=== PATIENT | male | born 1990 | race Two or more races ===

== ENCOUNTER 2017-04-26 00:40 | Emergency (ER) | payer OTHER ==
[~2017-04-26] VITALS: Ht 185.4 cm; Wt 89.8 kg
[2017-04-26] MEDS ORDERED: NKM (00:49)
[2017-04-26 00:55] VITALS: BP 134/85
--- NOTE | 2017-04-26 01:00 | Emergency Room Report ---
History of Present Illness General Chief Complaint: Foreign Body Source: Patient Present Illness HPI This is a 27-year-old male with no past medical history. He presents with a swallowed foreign body. He was drinking a Pepsi can and accidentally swallowed the tab. No other complaint. Denies any other than this. No pain. No fever or chills no nausea no vomiting. Allergies: Coded Allergies: No Known Allergies (Unverified , 04/26/17) Patient History Past Medical History: none, see triage record, old chart reviewed Past Surgical History: none Pertinent Family History: none Social History: Denies: smoking Immunizations: other Reviewed Nursing Documentation: PMH: Agreed, PSxH: Agreed Nursing Documentation-PMH Past Medical History: No Stated History Review of Systems Eye: Denies: eye pain, blurred vision ENT: Denies: ear pain, nose congestion, throat swelling Respiratory: Denies: cough, shortness of breath Cardiovascular: Denies: chest pain, palpitations Gastrointestinal: Denies: abdominal pain, diarrhea, nausea, vomiting Musculoskeletal: Denies: back pain, joint pain Skin: Denies: rash Neurological: Denies: headache, numbness Endocrine: Denies: increased thirst, increased urine Hematologic/Lymphatic: Denies: easy bruising All Other Systems: negative except mentioned in HPI Physical Exam Vital Signs Date Time Temp Pulse Resp B/P (MAP) Pulse Ox O2 Delivery O2 Flow Rate FiO2 04/26/17 00:45 97.9 72 16 134/85 99 Room Air vitals normal Sp02 EP Interpretation: reviewed, normal General Appearance: well appearing, no apparent distress, alert Head: normocephalic, atraumatic Eyes: bilateral eye PERRL, bilateral eye EOMI ENT: hearing grossly normal, normal pharynx Neck: full range of motion, supple, no meningismus Respiratory: chest non-tender, lungs clear, normal breath sounds Cardiovascular #1: regular rate, rhythm, no murmur Gastrointestinal: normal bowel sounds, non tender, no mass, no organomegaly, no bruit, non-distended Musculoskeletal: back normal, gait/station normal, normal range of motion Psychiatric: mood/affect normal Skin: warm/dry Medical Decision Making Diagnostic Impression: Primary Impression: Swallowed foreign body Qualified Codes: T18.9XXA - Foreign body of alimentary tract, part unspecified , initial encounter ER Course Patient with of swallowed foreign body. Not in his lung. No respiratory distress. No abdominal pain. I see no foreign body in the chest x-ray will be abdominal x-ray. He said he swallow an aluminum tab. His that can be seen on the x-ray. Reassured patient. We'll discharge him. Chest X-Ray Diagnostic Results Chest X-Ray Diagnostic Results : Chest X-Ray Ordered: Yes # of Views/Limited/Complete: 1 View Indication: Other - Swallowed foreign body EP Interpretation: Yes Interpretation: no consolidation, no effusion, no pneumothorax, other - No foreign body Impression: No acute disease Electronically Signed by: Electronically signed by Justin Martinez MD Other X-Ray Diagnostic Results Other X-Ray Diagnostic Results : X-Ray ordered: Abdominal x-rays # of Views/Limited Vs Complete: 2 View Indication: Other - Foreign body EP Interpretation: Yes Interpretation: no dislocation, no soft tissue swelling, no fractures, nonspecific bowel gas, other - No foreign body Impression: No acute disease Electronically Signed by: Electronically signed by Justin Martinez MD Last Vital Signs Date Time Temp Pulse Resp B/P (MAP) Pulse Ox O2 Delivery O2 Flow Rate FiO2 04/26/17 00:55 97.9 75 16 134/85 99 Room Air Status: improved Disposition: HOME, SELF-CARE Condition: Stable Patient Instructions: Swallowed Foreign Body, Adult Additional Instructions: Follow up with your doctor in 7 days. Return if worse. JUSTIN MARTINEZ M.D. Apr 26, 2017 01:00
[2017-04-26 01:37] VITALS: BP 132/74
--- NOTE | 2017-04-26 09:53 | Diagnostic Imaging Report ---
Indication: Dyspnea Comparison: None A single view chest radiograph was obtained. Findings: Cardiomediastinal appearance is within normal limits for age. Pulmonary vascularity is appropriate. The diaphragmatic contour is smooth and costophrenic angles are sharp. No pleural effusions are identified. The bones are unremarkable. Impression: No acute findings
--- NOTE | 2017-04-26 10:21 | Diagnostic Imaging Report ---
Indication: Abdominal pain Comparison: None Single view of the abdomen obtained Findings: Bowel gas pattern is nonspecific. No mass, ectopic calcifications, or abnormal gas collections are identified. The bones are unremarkable. Impression: No acute findings
== END 2017-04-26 01:37 | disposition home or self-care (01) ==
LOC: EMR 01:00
DX: T18.9XXA Foreign body of alimentary tract, part unspecified, initial encounter (principal); X58.XXXA Exposure to other specified factors, initial encounter; Y92.89 Other specified places as the place of occurrence of the external cause; R06.00 Dyspnea, unspecified
CPT/HCPCS: 71010; 74000; 99284